=== PATIENT | female | born 1980 | race Caucasian/White ===

== ENCOUNTER 2021-01-09 21:18 | Emergency (ER) | payer OTHER ==
[~2021-01-09] VITALS: Ht 154.9 cm; Wt 116.1 kg
[~2021-01-09 21:18] MED LIST: MACROBID 100 M100 MG PO; PYRIDIUM200 MG PO
[2021-01-09] MEDS ORDERED: PANTOPRAZOLE SO40 M2 PO (21:54)
[2021-01-09] MEDS ORDERED: SINGULAIR4 M1 PO (21:54)
[2021-01-09] MEDS ORDERED: VENTOLIN HFA18 GM INH (21:54)
[2021-01-10] MEDS ORDERED: DOXYCYCLINE HY100 MG PO (00:17)
[2021-01-10] MEDS ORDERED: FLAGYL500 MG PO (00:17)
== END 2021-01-10 01:18 | disposition home or self-care (01) ==
LOC: ED 21:18
DX: N73.0 Acute parametritis and pelvic cellulitis (principal); K21.9 Gastro-esophageal reflux disease without esophagitis; Z88.1 Allergy status to other antibiotic agents; Z88.5 Allergy status to narcotic agent; Z88.0 Allergy status to penicillin; Z88.2 Allergy status to sulfonamides; Z91.013 Allergy to seafood; Z79.899 Other long term (current) drug therapy
CPT/HCPCS: 74177; 80053; 81001; 85025; 96375; 99284-25; J0696; J1885; J7030; Q9967

== ENCOUNTER 2021-05-28 09:37 | Emergency (ER) | payer OTHER ==
[~2021-05-28] VITALS: Ht 154.9 cm; Wt 119.8 kg
[~2021-05-28 09:37] MED LIST changes: +DOXYCYCLINE HY100 MG PO; +FLAGYL500 MG PO; +PANTOPRAZOLE SO40 M2 PO; +SINGULAIR4 M1 PO; +VENTOLIN HFA18 GM INH
[2021-05-28] MEDS ORDERED: DICYCLOMINE HCL20 MG PO (11:39)
[2021-05-28] MEDS ORDERED: ONDANSETRON ODT4 MG SL (11:39)
== END 2021-05-28 12:17 | disposition home or self-care (01) ==
LOC: ED 09:37
DX: K52.9 Noninfective gastroenteritis and colitis, unspecified (principal); K21.9 Gastro-esophageal reflux disease without esophagitis; Z88.1 Allergy status to other antibiotic agents; Z88.5 Allergy status to narcotic agent; Z88.0 Allergy status to penicillin; Z91.013 Allergy to seafood; Z79.899 Other long term (current) drug therapy; Z91.040 Latex allergy status
CPT/HCPCS: 80053; 80500; 81001; 83690; 84703; 85025; 96374; 96375; 99284-25; J1885; J2405; J7030

== ENCOUNTER 2021-06-28 11:41 | Emergency (ER) | payer OTHER ==
[~2021-06-28] VITALS: Ht 154.9 cm; Wt 119.2 kg
[~2021-06-28 11:41] MED LIST changes: +DICYCLOMINE HCL20 MG PO; +ONDANSETRON ODT4 MG SL
[2021-06-28] MEDS ORDERED: BENZONATATE100 MG PO (12:53)
[2021-06-29] MEDS ORDERED: VENTOLIN HFA18 GM INH (15:19)
== END 2021-06-28 13:15 | disposition home or self-care (01) ==
LOC: ED 11:41
DX: R05.9 Cough, unspecified (principal); B97.4 Respiratory syncytial virus as the cause of diseases classified elsewhere; R11.2 Nausea with vomiting, unspecified; J45.909 Unspecified asthma, uncomplicated; Z88.1 Allergy status to other antibiotic agents; Z88.5 Allergy status to narcotic agent; Z91.040 Latex allergy status; Z91.013 Allergy to seafood; Z88.0 Allergy status to penicillin; Z88.2 Allergy status to sulfonamides; Z79.899 Other long term (current) drug therapy
CPT/HCPCS: 71045; 99283-25; U0003

== ENCOUNTER 2021-06-29 14:11 | Emergency (ER) | payer OTHER ==
[~2021-06-29] VITALS: Ht 154.9 cm; Wt 118.8 kg
[~2021-06-29 14:11] MED LIST changes: +BENZONATATE100 MG PO
--- OUTSIDE RECORDS SUMMARY | 2021-06-29 14:20 | XMS ---
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 Care Guidelines exist for the following facilities: [facility] ( 10/05/2017 ) [place] VISIT COUNT (12 MO.) 4 [facility] TOTAL 4 NOTE: Visits indicate total known visits. ED/UCC VISIT TRACKING (12 MO.) 06/29/2021 14:12 [facility] TYPE: Emergency COMPLAINT: - FEVER,BODY ACHES 06/28/2021 11:41 [facility] TYPE: Emergency COMPLAINT: - COLD SYMP. N/V 05/28/2021 09:38 [facility] TYPE: Emergency COMPLAINT: - ABDOMINAL PAIN DIAGNOSES: - Latex allergy status - Allergy status to narcotic agent - Other long-term (current) drug therapy - Unspecified abdominal pain - Allergy status to penicillin - Noninfective gastroenteritis and colitis, unspecified - Gastro-esophageal reflux disease without esophagitis - Allergy status to other antibiotic agents - Allergy to seafood 01/09/2021 21:20 [facility] TYPE: Emergency COMPLAINT: - BLADDER PAIN DIAGNOSES: - Allergy status to penicillin - Allergy status to other antibiotic agents - Other tank terminal gauger (current) drug therapy - Allergy status to sulfonamides - Gastro-esophageal reflux disease without esophagitis - Allergy to seafood - Allergy status to narcotic agent - Acute parametritis and pelvic cellulitis - Pelvic and perineal pain INPATIENT VISIT TRACKING (12 MO.) No inpatient visits to display in this time frame [email or web address]
[2021-06-29] MEDS ORDERED: VENTOLIN HFA18 GM INH (15:19)
== END 2021-06-29 15:32 | disposition home or self-care (01) ==
LOC: ED 14:11
DX: R50.9 Fever, unspecified (principal); B97.4 Respiratory syncytial virus as the cause of diseases classified elsewhere; K21.9 Gastro-esophageal reflux disease without esophagitis; J45.909 Unspecified asthma, uncomplicated; Z88.1 Allergy status to other antibiotic agents; Z88.5 Allergy status to narcotic agent; Z91.013 Allergy to seafood; Z91.040 Latex allergy status; Z88.2 Allergy status to sulfonamides; Z79.899 Other long term (current) drug therapy
CPT/HCPCS: 99283; U0003

== ENCOUNTER 2022-06-03 05:40 | Day surgery (SDC) | payer OTHER ==
[~2022-06-03] VITALS: Ht 154.9 cm; Wt 123.2 kg
[~2022-06-03 05:40] MED LIST changes: +PRILOSEC OTC20 MG PO; +SYMBICORT 80-10.2 GM INH
--- NOTE | 2022-06-03 08:40 | NUR ---
06/03/22 0840 Merissa Matthew 0840-PATIENT ARRIVED TO PACU ON 6L MASK REACTIVE TO VERBAL STIMULI REMAINS VERY DROWSY EYES OPEN RUBBING FACE. PATIENT EDUCATED ON NOT RUBBING FACE. SR. IVF INFUSING. PATIENT REPORTS "LITTLE PAIN" DOZES BACK TO SLEEP. USES CPAP AT HOME.
[2022-06-03] MEDS ORDERED: HYDROCODON-ACE1 EA10 PO (09:12)
[2022-06-03] MEDS ORDERED: MOTRIN IB200 MG PO (09:12)
--- NOTE | 2022-06-07 11:01 | OR ---
[facility] [address], [place] [address] Signed DATE OF OPERATION: 06/03/2022 SURGEON: Hans Wilkinson DO PREOPERATIVE DIAGNOSES: 1. Endometrial polyp on ultrasound. 2. History of endometrial ablation. 3. Anovulation/polycystic ovary syndrome. 4. Morbid obesity. POSTOPERATIVE DIAGNOSES: 1. Endometrial polyp on ultrasound. 2. History of endometrial ablation. 3. Anovulation/polycystic ovary syndrome. 4. Morbid obesity. 5. Thickened endometrium. PROCEDURE PERFORMED: Hysteroscopic dilation and curettage with polypectomy. ANESTHESIA: MAC. ESTIMATED BLOOD LOSS: 10 mL. SPECIMEN: Endometrial polyp and curettings. FINDINGS: Normal external genitalia, vagina and cervix. On hysteroscopy, iatrogenic Asherman consistent with history of endometrial ablation with scarring of the central portion of the uterine cavity. Bilateral cornual portion of the uterus is not ablated with a thickened endometrium and endometrial polyps. Hemostasis at the end of the procedure. FLUID DEFICIT: 590 mL. COMPLICATIONS: None. Electronically Signed By: HANS WILKINSON DO (JD) 06/07/22 1101 PATIENT NAME: ROSE DEL VALLE OPERATIVE REPORT DATE OF : 84 REPORT #: [id number] PHYSICIAN: HANS WILKINSON DO (JD) PCP: YANCY VAZQUEZ MD REPORT IS CONFIDENTIAL AND NOT TO BE RELEASED WITHOUT AUTHORIZATION [address] [address] Signed INDICATIONS: Ms. Del Valle is a pleasant 41-year-old female who underwent endometrial ablation approximately 4-5 years ago at an another hospital for irregular bleeding. She reports that she had a tubal ligation at a different hospital approximately two years ago. She was in the emergency department with another complaint and an ultrasound was performed that demonstrated an incidental endometrial polyp. The patient was consented for hysteroscopy, dilation, curettage, and polypectomy. She was originally scheduled with my partner, Dr. Mccormick. However, he unfortunately had an injury recently and patient desired to proceed with surgery with myself. Risks, benefits, and alternatives were discussed in detail with the patient. The patient understands and wished to proceed with the procedure. PROCEDURE IN DETAIL: The patient was taken to the operating room. A time-out was performed to confirm correct patient, correct procedure. MAC anesthesia was adequately established. The patient was prepped and draped in the dorsal lithotomy position with feet in Yellofin stirrups. ICPs were on a running and no preoperative antibiotics or heparin were indicated. The bladder was drained. A weighted speculum was placed inside the vagina. The anterior lip of the cervix was grasped with an Allis clamp. The cervix was gently dilated using Hegar dilators. This dilation was performed to where resistance was met at the level of the internal os. An operative hysteroscope was then placed into the cervical os and advanced under direct visualization to the internal os. A small dimple at the top of the os was identified and careful dilation was performed using the hysteroscope with careful attention to not create a false tract. The uterine cavity was then entered. Central scarring consistent with Asherman syndrome from the uterine ablation was identified. Bilateral cornual areas were not ablated demonstrating thickened endometrium with endometrial polyps. MyoSure Reach device was selected and endometrial sampling and polypectomy was performed removing all endometrial polyps and district sales representative sampling of the endometrium. The hysteroscope was withdrawn. Allis clamp was removed and no bleeding was noted. Estimated blood loss 10 mL with fluid deficit of 590 mL. The patient was then taken to PACU in good and stable condition. Sponge, needle, and instrument count was correct x2 at the end of the procedure. Given abnormal architecture of the uterine cavity, patient would not be a candidate for intrauterine device such as Mirena IUD. Hans Wilkinson DO Electronically Signed By: HANS WILKINSON DO (JD) 06/07/22 1101 PATIENT NAME: ROSE DEL VALLE OPERATIVE REPORT DATE OF : 84 REPORT #: [id number] PHYSICIAN: HASN WILKINSON DO (JD) PCP: YANCY VAZQUEZ MD REPORT IS CONFIDENTIAL AND NOT TO BE RELEASED WITHOUT AUTHORIZATION [address] [address] Signed GILLIAN/ISABEL /[id number] Copies: ~ Electronically Signed By: HANS WILKINSON DO (JD) 06/07/22 1101 PATIENT NAME: ROSE DEL VALLE OPERATIVE REPORT DATE OF : 84 REPORT #: [id number] PHYSICIAN: HANS WILKINSON (SAMANTHA) PCP: YANCY VAZQUEZ MD REPORT IS CONFIDENTIAL AND NOT TO BE RELEASED WITHOUT AUTHORIZATION
== END 2022-06-03 09:30 | disposition home or self-care (01) ==
LOC: DS 05:40 → OPS 05:40 → DS 07:30 → OPS 07:30
PROVIDERS: ATTEND Obstetrics & Gynecology
PROC: 0UDB8ZX Extraction of Endometrium, Via Natural or Artificial Opening Endoscopic, Diagnostic (ICD-10-PCS; principal; 2022-06-03 07:30)
DX: N84.0 Polyp of corpus uteri (principal); E28.2 Polycystic ovarian syndrome; E66.01 Morbid (severe) obesity due to excess calories; Z68.42 Body mass index [BMI] 45.0-49.9, adult; J45.990 Exercise induced bronchospasm; R93.89 Abnormal findings on diagnostic imaging of other specified body structures
CPT/HCPCS: 00952; 88305; J0131; J1100; J1885; J2001; J2250; J2405; J2704; J3010; J7121

== ENCOUNTER 2022-06-24 17:12 | Emergency (ER) | payer OTHER ==
[~2022-06-24] VITALS: Ht 154.9 cm; Wt 120.2 kg
[~2022-06-24 17:12] MED LIST changes: +HYDROCODON-ACE1 EA10 PO; +MOTRIN IB200 MG PO
[2022-06-24] MEDS ORDERED: ULTRAM50 MG PO (20:24)
== END 2022-06-24 20:52 | disposition home or self-care (01) ==
LOC: ED 17:12
DX: M72.2 Plantar fascial fibromatosis (principal); K21.9 Gastro-esophageal reflux disease without esophagitis; J45.909 Unspecified asthma, uncomplicated; Z91.013 Allergy to seafood; Z88.0 Allergy status to penicillin; Z91.040 Latex allergy status; Z88.2 Allergy status to sulfonamides; Z88.5 Allergy status to narcotic agent; Z88.1 Allergy status to other antibiotic agents; Z79.899 Other long term (current) drug therapy
CPT/HCPCS: 73630; 99283-25

== ENCOUNTER 2022-07-30 14:08 | Emergency (ER) | payer OTHER ==
[~2022-07-30] VITALS: Ht 154.9 cm; Wt 117.9 kg
[~2022-07-30 14:08] MED LIST changes: +ULTRAM50 MG PO
[2022-07-30] MEDS ORDERED: NAPROSYN500 MG PO (16:21)
[2022-07-30] MEDS ORDERED: DOXYCYCLINE HY100 MG PO (16:21)
== END 2022-07-30 19:20 | disposition home or self-care (01) ==
LOC: ED 14:08
DX: S16.1XXA Strain of muscle, fascia and tendon at neck level, initial encounter (principal); S00.83XA Contusion of other part of head, initial encounter; S50.311A Abrasion of right elbow, initial encounter; K21.9 Gastro-esophageal reflux disease without esophagitis; J45.909 Unspecified asthma, uncomplicated; Z23 Encounter for immunization; Z20.822 Contact with and (suspected) exposure to COVID-19; Z79.899 Other long term (current) drug therapy; Z91.013 Allergy to seafood; Z88.0 Allergy status to penicillin; Z91.040 Latex allergy status; Z88.2 Allergy status to sulfonamides; Z88.5 Allergy status to narcotic agent; Z88.1 Allergy status to other antibiotic agents; V89.2XXA Person injured in unspecified motor-vehicle accident, traffic, initial encounter
CPT/HCPCS: 36415; 70450; 71260; 72125; 73060; 73080; 73090; 74177; 80053; 83690; 84702; 85025; 86850; 86900; 86901; 87502; 90471; 90715; 96374; 96375; 96376; 99284-25; C9803; G0480; J1170; J2405; J7030; Q9967; U0003

== ENCOUNTER 2023-11-12 07:19 | Emergency (ER) | payer OTHER ==
[~2023-11-12] VITALS: Ht 154.9 cm; Wt 117.8 kg
[~2023-11-12 07:19] MED LIST changes: +NAPROSYN500 MG PO
[2023-11-12] MEDS ORDERED: WELLBUTRIN SR100 MG PO (07:40)
[2023-11-12 08:00] LABS: BASOPHILS 0.6 % (0-2); BILIRUBIN, URINE NEGATIVE (negative); BLOOD/HGB, URINE NEGATIVE (Negative); EOSINOPHILS 2.3 % (0-6); HEMOGLOBIN 13.9 g/dL (12.0-18.0); KETONE, URINE NEGATIVE (Negative); LEUK ESTERASE, URINE NEGATIVE (negative); LYMPHOCYTES 23.5 % (24-44); MCH 26.9 (27-36); MCHC 33.2 g/dl (30-36); MONOCYTES 7.3 % (0-12); NEUTROPHILS 66.3 % (39-80); NITRITE, URINE NEGATIVE (negative); PH, URINE 5.5 (5-7); PLATELET COUNT 282 K/uL (140-440); RBC 5.18 M/ul (4.3-5.7); RDW 14.2 (10.5-15.0)
[2023-11-12 08:15] LABS: ALBUMIN 3.3 g/dL (3.4-5.0); ALBUMIN/GLOBULIN RATIO 0.77 (1.1-2.4); ANION GAP 10.3 (7-21); BILIRUBIN, TOTAL 0.5 ng/dL (0.2-1.0); BUN/CREATININE RATIO 11.76 (6.0-28.6); CALCIUM 8.8 mg/dL (8.5-10.1); CREATININE, SERUM 1.02 mg/dL (0.55-1.02); POTASSIUM 4.3 mmol/L (3.5-5.1); PROTEIN, TOTAL 7.6 g/dL (6.4-8.2)
[2023-11-12] MEDS ORDERED: SODIUM CHLORIDE 0.9% 500 ML IV PRN (08:45)
[2023-11-12 11:12] VITALS: BP 128/84
== END 2023-11-12 11:20 | disposition home or self-care (01) ==
LOC: ED 07:19
PROVIDERS: Emergency Medicine
DX: R10.31 Right lower quadrant pain (principal); J45.909 Unspecified asthma, uncomplicated; K21.9 Gastro-esophageal reflux disease without esophagitis; Z88.0 Allergy status to penicillin; Z88.5 Allergy status to narcotic agent; Z88.2 Allergy status to sulfonamides; Z91.013 Allergy to seafood; Z79.899 Other long term (current) drug therapy
CPT/HCPCS: 36415; 74177; 80053; 81003; 83690; 84703; 85025; 99284-25; J7040; Q9967

== ENCOUNTER 2024-02-10 23:31 | Emergency (ER) | payer OTHER ==
[~2024-02-10] VITALS: Ht 154.9 cm; Wt 116.0 kg
[~2024-02-10 23:31] MED LIST changes: +WELLBUTRIN SR100 MG PO
[2024-02-10] MEDS ORDERED: ondansetron HCL 4 MG/2 ML VIAL IV ONE (23:45)
[2024-02-10] MEDS ORDERED: SODIUM CHLORIDE 0.9% 1,000 ML IV ONE (23:45)
[2024-02-11 00:33] LABS: HEMATOCRIT 39.6 % (35.0-50.0); HEMOGLOBIN 13.1 g/dL (12.0-18.0); LYMPHOCYTES 22.9 % (24-44); MCH 26.7 (27-36); MCV 80.8 fl (81-99); MONOCYTES 6.1 % (0-12); PLATELET COUNT 301 K/uL (140-440); RDW 14.3 (10.5-15.0)
[2024-02-11 00:42] LABS: BILIRUBIN, URINE NEGATIVE (negative); BLOOD/HGB, URINE SMALL (Negative); KETONE, URINE NEGATIVE (Negative); LEUK ESTERASE, URINE NEGATIVE (negative); NITRITE, URINE NEGATIVE (negative)
[2024-02-11 00:49] LABS: ALBUMIN 3.2 g/dL (3.4-5.0); ALBUMIN/GLOBULIN RATIO 0.78 (1.1-2.4); ANION GAP 12.2 (7-21); BILIRUBIN, TOTAL 0.3 ng/dL (0.2-1.0); BUN/CREATININE RATIO 10.18 (6.0-28.6); CALCIUM 8.8 mg/dL (8.5-10.1); CREATININE, SERUM 1.08 mg/dL (0.55-1.02); POTASSIUM 4.2 mmol/L (3.5-5.1); PROTEIN, TOTAL 7.3 g/dL (6.4-8.2)
[2024-02-11 00:51] LABS: EPITHELIAL CELLS, URINE SQUAMOUS 1+ /lpf (0-1+)
[2024-02-11 00:52] LABS: BACTERIA, URINE RARE /hpf (negative); CASTS, URINE NONE SEEN \\lpf; COLLECTION TYPE, URINE CLEAN CATCH; CRYSTALS, URINE NONE SEEN (0-1+); REFLEX CULTURE, URINE No (No); WHITE BLOOD CELLS, URINE 0-1 /HPF (0-5)
[2024-02-11] MEDS ORDERED: FLOMAX0.4 MG PO (02:46)
[2024-02-11] MEDS ORDERED: TRAMADOL HCL50 MG PO (02:46)
[2024-02-11] MEDS ORDERED: ONDANSETRON ODT8 MG PO (02:46)
[2024-02-11] MEDS ORDERED: ONDANSETRON 4 MG HOME.PACK SL ONE (03:00)
[2024-02-11] MEDS ORDERED: TRAMADOL HCL 50 MG HOME.PACK PO ONE (03:00)
[2024-02-11 03:23] VITALS: BP 111/75
== END 2024-02-11 03:25 | disposition home or self-care (01) ==
LOC: ED 23:31
PROVIDERS: Family Medicine
DX: N20.0 Calculus of kidney (principal); K21.9 Gastro-esophageal reflux disease without esophagitis; J45.909 Unspecified asthma, uncomplicated; Z79.899 Other long term (current) drug therapy; Z88.0 Allergy status to penicillin; Z91.040 Latex allergy status; Z88.2 Allergy status to sulfonamides; Z88.5 Allergy status to narcotic agent; Z88.1 Allergy status to other antibiotic agents; Z91.013 Allergy to seafood
CPT/HCPCS: 36415; 74177; 80053; 81001; 83690; 84703; 85025; 96361; 99284-25; A9270; J2405; J7030; Q9967

== ENCOUNTER 2024-11-27 08:03 | Emergency (ER) | payer OTHER ==
[~2024-11-27] VITALS: Ht 154.9 cm; Wt 114.9 kg
[~2024-11-27 08:03] MED LIST changes: +FLOMAX0.4 MG PO; +ONDANSETRON ODT8 MG PO; +TRAMADOL HCL50 MG PO
[2024-11-27 08:35] VITALS: BP 138/103
== END 2024-11-27 08:35 | disposition home or self-care (01) ==
LOC: ED 08:03
DX: M79.644 Pain in right finger(s) (principal); J45.909 Unspecified asthma, uncomplicated; K21.9 Gastro-esophageal reflux disease without esophagitis; Z91.013 Allergy to seafood; Z88.0 Allergy status to penicillin; Z88.1 Allergy status to other antibiotic agents; Z88.2 Allergy status to sulfonamides; Z79.899 Other long term (current) drug therapy
CPT/HCPCS: 99283

== ENCOUNTER 2025-04-14 05:41 | Day surgery (SDC) | payer OTHER ==
[~2025-04-14] VITALS: Ht 154.9 cm; Wt 115.0 kg
[~2025-04-14 05:41] MED LIST changes: +LACTATED RINGER'S 1,000 ML IV SCH; +LEVOTHYROXINE25 MCG PO
[2025-04-14 06:08] VITALS: BP 136/85
[2025-04-14] MEDS ORDERED: ALL DAY ALLERGY10 MG PO (06:19)
[2025-04-14] MEDS ORDERED: MIDAZOLAM HCL 2 MG/2 ML VIAL ONE (06:51)
[2025-04-14] MEDS ORDERED: CEFAZOLIN SODIUM 3 GM in SODIUM CHLORIDE 0.9% 100 ML IV SCH (07:00)
[2025-04-14] MEDS ORDERED: CEFAZOLIN SODIUM 2 GM in SODIUM CHLORIDE 0.9% 100 ML IV SCH (07:00)
[2025-04-14] MEDS ORDERED: HYDROCODONE/ACETA 5/325 TAB PO PRN (07:00)
[2025-04-14] MEDS ORDERED: LIDOCAINE HCL 1% 5 ML SDV INJ ONE (07:00)
[2025-04-14] MEDS ORDERED: IBLOOD GLUCOSE TEST STRIP 1 EA TEST VI PRN (07:00)
[2025-04-14] MEDS ORDERED: LIDOCAINE HCL 0.5% 50 ML SDV ONE (07:07)
[2025-04-14] MEDS ORDERED: DEXAMETHASONE SOD PHOS 4 MG/ML VIAL ONE (07:07)
[2025-04-14] MEDS ORDERED: KETOROLAC TROMETHAMINE 30 MG/ML VIAL ONE (07:07)
[2025-04-14] MEDS ORDERED: KETAMINE in NS 50 MG/5 ML SYR ONE (07:07)
[2025-04-14] MEDS ORDERED: HYDROCODON-ACE1 EA10 PO (07:24)
--- NOTE | 2025-04-14 07:47 | NUR ---
04/14/25 0747 Ekta Gandara 6706 PT ARRIVED TO PACU ON RA, PT WAKES BUT IS VERY DROWSY AND HARDLY OPEN HER EYES. RESP EVEN AND UNLABORED WITH SMALL AMOUNT OF SNORING. LEFT HAND ON PILLOW AND ICE PLACED. PT SITTING IN HIGH FOLWERS. 2958 PT WAKES ON HER OWN AND PLAN OF CARE DISCUSSED. PT REPORTS "SLIGHT PAIN" IN WRIST AND NO NUMBNESS IN HER HAND. PT RESTING WITH EYES CLOSED.
[2025-04-14 08:02] VITALS: BP 110/75
--- NOTE | 2025-04-14 11:08 | OR ---
[facility] [address], [place] [address] Signed DATE OF OPERATION: 04/14/2025 SURGEON: Jay Estrada MD PREOPERATIVE DIAGNOSIS: Carpal tunnel syndrome, left. POSTOPERATIVE DIAGNOSIS: Carpal tunnel syndrome, left. PROCEDURE PERFORMED: Left carpal tunnel release. GENERAL INTERNIST AND PHYSICIAN LEADER: None. ANESTHESIA: Luan block. TOURNIQUET TIME: 18 minutes. BRIEF HISTORY: Rose is a 44-year-old female with pain and numbness in her hand. Nerve conduction studies were consistent with significant carpal tunnel. Risks and benefits of operative treatment were discussed with her and she elected to proceed. DESCRIPTION OF PROCEDURE: Once consent was obtained, she was taken to the operating room. After adequate anesthesia, she was left on the day surgery bed. The hand table was brought in. The arm was prepped and draped in a standard sterile fashion. A 1.5 cm incision was made in the distal wrist crease. This was carried through skin and subcutaneous tissue. The palmaris longus was identified, retracted, and protected. The transverse carpal ligament was identified under loupe magnification. It was then dissected free of overlying soft tissue proximally and distally. Under loupe magnification, it was released proximally a centimeter and distally to the distal extent uncovering the median nerve. There was good return of blood flow into vasa nervorum. The carpal tunnel was then palpated using a Diamond and found to be completely released. The wound was copiously irrigated with normal saline and closed with 3-0 nylon. It was then injected with 5 mL of 0.25% plain Electronically Signed By: JAY ESTRADA MD 04/14/25 1108 PATIENT NAME: ROSE CURRAN OPERATIVE REPORT DATE OF : 84 REPORT #: [id number] PHYSICIAN: JYA ESTRADA MD PCP: JAY ESTRADA MD REPORT IS CONFIDENTIAL AND NOT TO BE RELEASED WITHOUT AUTHORIZATION [facility] [address] [place] [id number] Signed Marcaine. The wound was dressed with bacitracin, Adaptic, 4 x 8s, and gauze. All sponge, needle, and instrument counts were correct. Jay Estrada MD BA/MODL /[id number] Copies: ~ Electronically Signed By: JAY ESTRADA MD 04/14/25 1108 PATIENT NAME: ROSE CURRAN OPERATIVE REPORT DATE OF : 84 REPORT #: [id number] PHYSICIAN: JAY ESTRADA MD PCP: JAY ESTRADA MD REPORT IS CONFIDENTIAL AND NOT TO BE RELEASED WITHOUT AUTHORIZATION
== END 2025-04-14 08:13 | disposition home or self-care (01) ==
LOC: DS 05:41
PROVIDERS: ATTEND Specialist
PROC: 01N50ZZ Release Median Nerve, Open Approach (ICD-10-PCS; principal; 2025-04-14 07:00)
DX: G56.03 Carpal tunnel syndrome, bilateral upper limbs (principal); E11.9 Type 2 diabetes mellitus without complications; J45.909 Unspecified asthma, uncomplicated; E89.0 Postprocedural hypothyroidism; Z79.890 Hormone replacement therapy; Z79.899 Other long term (current) drug therapy; Z88.0 Allergy status to penicillin; Z88.1 Allergy status to other antibiotic agents; Z88.5 Allergy status to narcotic agent; Z88.8 Allergy status to other drugs, medicaments and biological substances; Z91.040 Latex allergy status; Z91.048 Other nonmedicinal substance allergy status
CPT/HCPCS: 01810; 36415; 84703; J0688; J1100; J1885; J2250; J2405; J2704; J3490; J7121